=== PATIENT | male | born 1980 | race Caucasian/White ===

== ENCOUNTER → 2016-10-13 | Outpatient (REF) | payer MEDICAID, OTHER ==
[2016-10-13 18:48] LABS: BASO % 0.5 % (0.0-1.0); EOS # 0.4 K/mm3 (0.0-0.50); EOS % 5.1 % (0.0-3.0); LARGE UNSTAINED CELL # 0.3 K/mm3 (0.0-0.4); LARGE UNSTAINED CELL % 3.5 % (0.0-4.0); LYMPH % 38.6 % (24.0-44.0); MEAN CORPUSCULAR HEMOGLOBIN 30.3 pg (27.0-33.0); MEAN CORPUSCULAR HGB CONC 34.9 g/dl (32.0-36.5); MEAN CORPUSCULAR VOLUME 86.8 fl (80.0-96.0); MONO # 0.4 K/mm3 (0.0-0.8); MONO % 4.5 % (0.0-5.0); NEUTROPHILS # 3.8 K/mm3 (1.8-7.7); NEUTROPHILS % 47.8 % (36.0-66.0); PLATELET COUNT, AUTOMATED 195 k/mm3 (150-450); RED CELL DISTRIBUTION WIDTH 12.8 % (11.5-14.5); WHITE BLOOD COUNT 7.9 K/mm3 (4.0-10.0)
[2016-10-13 18:58] LABS: ALBUMIN 3.8 GM/DL (3.2-5.2); ALBUMIN/GLOBULIN RATIO 0.84 (1.00-1.93); ALKALINE PHOSPHATASE 74 U/L (45-117); ALT/SGPT 41 U/L (12-78); AST/SGOT 23 U/L (15-37); BILIRUBIN,DIRECT 0.1 MG/DL (0.0-0.2); BILIRUBIN,TOTAL 0.6 MG/DL (0.2-1.0); TOTAL PROTEIN 8.3 GM/DL (6.4-8.2)
[2016-10-15 09:50] LABS: HEPATITIS B SURFACE ANTIBODY POSITIVE (POSITIVE)
== END ==
LOC: M SFHCPLAZ 16:58
PROVIDERS: ATTEND Internal Medicine Infectious Disease
DX: B18.2 Chronic viral hepatitis C (principal)

== ENCOUNTER → 2016-12-23 | Outpatient (CLI) | payer OTHER, MEDICAID ==
[2016-12-23 19:14] LABS: ALBUMIN/GLOBULIN RATIO 0.95 (1.00-1.93); ALKALINE PHOSPHATASE 80 U/L (45-117); ALT/SGPT 25 U/L (12-78); ANION GAP 8 MEQ/L (8-16); AST/SGOT 23 U/L (15-37); BILIRUBIN,TOTAL 0.2 MG/DL (0.2-1.0); BLOOD UREA NITROGEN 20 MG/DL (7-18); CALCIUM LEVEL 8.6 MG/DL (8.5-10.1); CARBON DIOXIDE LEVEL 27 MEQ/L (21-32); CHLORIDE LEVEL 105 MEQ/L (98-107); CHOLESTEROL LEVEL 188 MG/DL (<200); CREATININE FOR GFR 0.91 MG/DL (0.70-1.30); GLOMERULAR FILTRATION RATE > 60.0 (>60); GLUCOSE, FASTING 80 MG/DL (70-105); POTASSIUM SERUM 3.8 MEQ/L (3.5-5.1); SODIUM LEVEL 140 MEQ/L (136-145); TOTAL PROTEIN 8.2 GM/DL (6.4-8.2); TRIGLYCERIDES LEVEL 186 MG/DL (<150)
[2016-12-24 09:26] LABS: HIV SCRN NEGATIVE (NEGATIVE)
[2016-12-24 09:27] LABS: CONTROL LINE INT CTR LINE PRESENT; HIV SCRN1 NEGATIVE (NEGATIVE)
[2016-12-28 14:16] LABS: HEPATITIS C QUANTITATION HCV Not Detected IU/mL (.)
== END ==
LOC: M LAB 16:41
PROVIDERS: ATTEND Family Medicine
DX: F11.20 Opioid dependence, uncomplicated (principal)

== ENCOUNTER → 2017-02-22 | Outpatient (REF) | payer OTHER ==
[2017-02-22 17:38] LABS: ALBUMIN 3.7 GM/DL (3.2-5.2); ALBUMIN/GLOBULIN RATIO 1.06 (1.00-1.93); ALKALINE PHOSPHATASE 75 U/L (45-117); ALT/SGPT 26 U/L (12-78); AST/SGOT 16 U/L (15-37); BILIRUBIN,DIRECT < 0.1 MG/DL (0.0-0.2); BILIRUBIN,TOTAL 0.2 MG/DL (0.2-1.0); TOTAL PROTEIN 7.2 GM/DL (6.4-8.2)
[2017-02-23 10:50] LABS: HEPATITIS B SURFACE ANTIBODY POSITIVE (POSITIVE)
[2017-02-25 14:16] LABS: HEPATITIS C QUANTITATION HCV Not Detected IU/mL (.)
== END ==
LOC: M SFHCPLAZ 15:57
PROVIDERS: ATTEND Internal Medicine Infectious Disease
DX: B18.2 Chronic viral hepatitis C (principal)

== ENCOUNTER 2017-09-12 09:09 | Emergency (ER) | payer OTHER ==
[~2017-09-12] VITALS: Ht 180.3 cm; Wt 126.4 kg
[2017-09-12 09:12] VITALS: BP 138/97
[2017-09-12] MEDS ORDERED: NEUR300C PO (09:24)
[2017-09-12] MEDS ORDERED: SUBO8MIS PO (09:25)
[2017-09-12] MEDS ORDERED: CLON-412 PO (09:25)
[2017-09-12] MEDS ORDERED: KEFL500C17 PO (10:15)
[2017-09-12] MEDS ORDERED: CEPHALEXIN 500 MG CAP PO ONE (10:15)
== END 2017-09-12 10:39 | disposition home or self-care (01) ==
LOC: M ED 09:09
DX: L03.113 Cellulitis of right upper limb (principal); L03.114 Cellulitis of left upper limb; L25.9 Unspecified contact dermatitis, unspecified cause; B18.2 Chronic viral hepatitis C; Z79.899 Other long term (current) drug therapy

== ENCOUNTER 2017-11-08 18:40 | Emergency (ER) | payer OTHER | END 2017-11-08 20:17 | disposition home or self-care (01) | LOC: M ED 18:40 | DX: J02.9 Acute pharyngitis, unspecified (principal); L02.821 Furuncle of head [any part, except face]; J45.909 Unspecified asthma, uncomplicated; Z79.899 Other long term (current) drug therapy; Z20.818 Contact with and (suspected) exposure to other bacterial communicable diseases | CPT/HCPCS: 99283 ==

== ENCOUNTER → 2018-01-25 | Outpatient (CLI) | payer OTHER | LOC: M RAD 14:48 | DX: M54.16 Radiculopathy, lumbar region (principal) | CPT/HCPCS: 72110 ==

== ENCOUNTER 2018-02-05 21:18 | Emergency (ER) | payer OTHER | END 2018-02-05 23:11 | disposition home or self-care (01) | LOC: M ED 21:18 | DX: S30.1XXA Contusion of abdominal wall, initial encounter (principal); Y04.8XXA Assault by other bodily force, initial encounter; Y92.89 Other specified places as the place of occurrence of the external cause; F41.9 Anxiety disorder, unspecified; B19.20 Unspecified viral hepatitis C without hepatic coma; F17.200 Nicotine dependence, unspecified, uncomplicated; Z79.899 Other long term (current) drug therapy | CPT/HCPCS: 99283 ==

== ENCOUNTER → 2018-03-14 | Outpatient (REF) | payer OTHER ==
[2018-03-14 13:36] LABS: VITAMIN B12 LEVEL 265 PG/ML
[2018-03-14 13:44] LABS: FREE T4 0.96 NG/DL (0.76-1.46); RHEUMATOID FACTOR QUANT < 10.0 IU/ML (<15.0)
[2018-03-14 14:02] LABS: ERYTHROCYTE SEDIMENTATION RATE 17 mm/hr (0-15)
[2018-03-14 14:32] LABS: ESTIMATED AVERAGE GLUCOSE 114 MG/DL (60-110); HEMOGLOBIN A1c 5.6 %
[2018-03-15 10:18] LABS: ANTINUCLEAR ANTIBODIES DIRECT Negative (Negative)
[2018-03-17 10:19] LABS: VITAMIN B1 LEVEL WHOLE BLOOD 110.5 nmol/L (66.5-200.0); VITAMIN B6,PYRIDOXAL PHOSPHATE 12.8 ug/L (5.3-46.7)
[2018-03-17 14:16] LABS: VITAMIN E(ALPHA TOCOPHEROL) 9.7 mg/L (5.9-19.4); VITAMIN E(GAMMA TOCOPHEROL) 2.4 mg/L (0.7-4.9)
== END ==
LOC: M LABNEURO 10:59
DX: E11.9 Type 2 diabetes mellitus without complications (principal); E07.9 Disorder of thyroid, unspecified; R20.0 Anesthesia of skin
CPT/HCPCS: 82746

== ENCOUNTER → 2018-03-30 | Outpatient (CLI) | payer OTHER | LOC: M RAD 06:11 | DX: R22.42 Localized swelling, mass and lump, left lower limb (principal); M71.22 Synovial cyst of popliteal space [Baker], left knee | CPT/HCPCS: 93970 ==

== ENCOUNTER 2018-07-06 02:07 | Emergency (ER) | payer OTHER ==
[2018-07-06] MEDS: AMPICILLIN SOD/SULBACTAM SOD 3 GM in D5W MINI-BAG PLUS 100 ML IV (05:00)
== END 2018-07-06 05:54 | disposition home or self-care (01) ==
LOC: M ED 02:07
DX: L03.113 Cellulitis of right upper limb (principal); Z79.899 Other long term (current) drug therapy; F17.210 Nicotine dependence, cigarettes, uncomplicated
CPT/HCPCS: 76882

== ENCOUNTER → 2018-12-07 | Outpatient (REF) | payer MEDICAID ==
[~2018-12-07] MED LIST: AUGM500T34 PO; AUGM875T28 PO; BUPR1SUB5 SL; CATA0.1T PO; CLON-412 PO; KEFL500C17 PO; LYRI150C PO; LYRI75CA PO; NEUR300C PO; SUBO8MIS PO
[2018-12-07 21:56] LABS: INFLUENZA A AMPLIFICATION NEGATIVE (NEGATIVE); INFLUENZA B AMPLIFICATION NEGATIVE (NEGATIVE)
== END ==
LOC: M LAB REF 18:27
PROVIDERS: ATTEND Physician Assistant
DX: J11.1 Influenza due to unidentified influenza virus with other respiratory manifestations (principal)

== ENCOUNTER 2019-03-08 14:11 | Emergency (ER) | payer MEDICAID ==
[~2019-03-08] VITALS: Ht 180.3 cm; Wt 114.1 kg
[2019-03-08 14:12] VITALS: BP 141/95
[2019-03-08] MEDS ORDERED: QUET5TAB PO (14:24)
[2019-03-08] MEDS ORDERED: LYRI200C PO (14:24)
[2019-03-08] MEDS ORDERED: GABA-843 PO (14:24)
== END 2019-03-08 16:25 | disposition left against medical advice (07) ==
LOC: M ED 14:11
DX: M54.30 Sciatica, unspecified side (principal); Z53.21 Procedure and treatment not carried out due to patient leaving prior to being seen by health care provider

== ENCOUNTER 2019-03-10 20:26 | Emergency (ER) | payer MEDICAID, OTHER ==
[~2019-03-10] VITALS: Ht 180.3 cm; Wt 113.2 kg
[~2019-03-10 20:26] MED LIST changes: +GABA-843 PO; +LYRI200C PO; +QUET5TAB PO
[2019-03-10] MEDS ORDERED: IBUP80TA PO (20:33)
[2019-03-10] MEDS ORDERED: KETOROLAC 30 MG/ML VIAL (J1885) IM ONE (21:00)
[2019-03-10] MEDS ORDERED: KETO10TAB PO (21:24)
[2019-03-10 21:37] VITALS: BP 125/82
== END 2019-03-10 22:00 | disposition home or self-care (01) ==
LOC: M ED 20:26
DX: M47.26 Other spondylosis with radiculopathy, lumbar region (principal); M54.42 Lumbago with sciatica, left side; Z86.19 Personal history of other infectious and parasitic diseases; G57.93 Unspecified mononeuropathy of bilateral lower limbs; F19.11 Other psychoactive substance abuse, in remission; Z87.81 Personal history of (healed) traumatic fracture; F17.200 Nicotine dependence, unspecified, uncomplicated; Z79.899 Other long term (current) drug therapy; Z79.1 Long term (current) use of non-steroidal anti-inflammatories (NSAID)
CPT/HCPCS: 96372; 99283; J1885

== ENCOUNTER 2019-04-01 23:24 | Emergency (ER) | payer OTHER ==
[~2019-04-01] VITALS: Ht 180.3 cm; Wt 112.7 kg
[~2019-04-01 23:24] MED LIST changes: +IBUP80TA PO; +KETO10TAB PO
[2019-04-02] MEDS ORDERED: KETOROLAC 60 MG/2 ML VIAL (J1885) IM ONE (00:30)
[2019-04-02] MEDS ORDERED: PRED10TA2 PO (00:57)
[2019-04-02 01:02] VITALS: BP 158/102
== END 2019-04-02 01:04 | disposition home or self-care (01) ==
LOC: M ED 23:24
DX: M54.32 Sciatica, left side (principal); F17.210 Nicotine dependence, cigarettes, uncomplicated; Z79.899 Other long term (current) drug therapy; Z86.19 Personal history of other infectious and parasitic diseases
CPT/HCPCS: 96372; 99283; J1885

== ENCOUNTER → 2019-05-17 | Outpatient (CLI) | payer OTHER ==
[~2019-05-17] MED LIST changes: +PRED10TA2 PO
--- NOTE | 2019-05-30 01:13 | ECWPNPC ---
PATIENT NAME: MARIA A DUNN : 1980 GENDER: MALE VISIT DATE: 05/17/2019 DISCHARGE DATE: 05/17/19 1722 VISIT LOCKED DATE TIME: PHYSICIAN: ROHAN REAL MD RESOURCE: ROHAN REAL MD REASON FOR APPOINTMENT 1. SCIATICA PAIN PER SIENA HISTORY OF PRESENT ILLNESS PAIN SCREENING: PATIENT HAS A COMPLAINT OF ACUTE OR CHRONIC PAIN :YES 38 YEAR OLD MALE PATIENT WITH A HISTORY OF CHRONIC LEFT LEG PAIN. THE PATIENT DESCRIBES THE PAIN ACHING, STABBING, SHOOTING, SORE, SHARP, DAILY, NUMBNESS, AND CONTINUOUS WITH A PAIN SCORE OF 8-10/10 DEPENDING ON PHYSICAL ACTIVITY. THE PATIENT SAYS HE HAS A HISTORY OF LOW BACK AND LEG PAIN, HOWEVER THE PAIN HE IS EXPERIENCING NOW IS NEW. THE PATIENT STATES HIS PAIN BEGINS IN HIS LEFT LOWER BUTTOCK AND RADIATES DOWN HIS LEFT LEG TO HIS LEFT KNEE WITH NUMBNESS IN HIS LEGS AND FEET. THE PATIENT SAYS HE HAS BEEN SUFFERING FROM THIS PAIN FOR ABOUT 6 MONTHS AND HE FEELS HE MAY HAVE PULLED HIS HAMSTRING. THE PATIENT SAYS HIS PAIN IS AFFECTING HIS ABILITY TO MOVE, WALK, AND PERFORM HIS DAILY ACTIVITIES, SUCH CLEANING AND GROCERY SHOPPING. PATIENT DENIES UNEXPLAINABLE WEIGHT LOSS, FEVER, CHILLS, NEW CHANGES ON HIS URINARY OR BOWEL CONTROL. FALL RISK SCREENING: SCREENING :NO FALLS REPORTED IN THE LAST YEAR CURRENT MEDICATIONS TAKING SUBOXONE DIRECTED FILM 1 CAP ORALLY 4 MG 5 TIMES A DAY FOR TOTAL OF 20 MG PER DAY TAKING LYRICA 100 MG CAPSULE 2 TABS ORALLY TID TAKING SEROQUEL 25 MG TABLET 1 TABLET AT BEDTIME ORALLY ONCE A DAY NOT-TAKING CLONIDINE HCL 0.1 MG TABLET 1 TABLET ORALLY BID NOT-TAKING GABAPENTIN 300 MG CAPSULE 1 TABLET ORALLY TID, NOTES: TID NOT-TAKING DOXYCYCLINE HYCLATE 100 MG CAPSULE 1 CAPSULE ORALLY EVERY 12 HRS UNKNOWN SUBOXONE 4-1 MG FILM 1 STRIP SUBLINGUAL DAILY MEDICATION LIST REVIEWED AND RECONCILED WITH THE PATIENT PAST MEDICAL HISTORY HEPATITIS C F0 GENOTYPE 3/ VACCINATED TWINRIX 2015/ CURED EPCLUSA 12 WEEKS DEPRESSION IVDU- LAST USE 02/16/[address] HOUSE ALLERGIES N.K.D.A. SURGICAL HISTORY LEFT KNEE MENSICUS REPAIR HEMATOMA ON HEAD 1984 RIGHT THUMB 2012 FAMILY HISTORY FATHER: ALIVE, DIAGNOSED WITH HYPERTENSION MOTHER: ALIVE, HYPERTENSION 1 SISTER(S) - HEALTHY. 1 SON(S) , 1 DAUGHTER(S) - HEALTHY. SOCIAL HISTORY GENERAL: TOBACCO USE ARE YOU A:CURRENT SMOKER TRYING TO QUIT ARE YOU INTERESTED IN QUITTING?NOT READY TO QUIT COUNSELED THE PATIENT ON SMOKING EFFECTS, EDUCATION TAWVOLOU67/08/2019 HOW MANY CIGARETTES A DAY DO YOU SMOKE?6-10 HOW SOON AFTER YOU WAKE UP DO YOU SMOKE YOUR FIRST CIGARETTE?6-30 MIN HOW OFTEN DO YOU SMOKE CIGARETTES?EVERY DAY PATIENT COUNSELED ON THE DANGERS OF TOBACCO USE AND URGED TO QUIT:05/17/2019 HIV / HEP-C SCREENING HIV TEST OFFERED TO PATIENT:YES DATE OFFERED:11/03/2016 TEST ACCEPTED: PREV TESTED HEP-C TEST OFFERED TO PATIENT:YES DATE OFFERED:11/03/2016 TEST ACCEPTED: PREV TESTED HOUSING: RENTS APARTMENT. EDUCATION LEVEL OF EDUCATION:HIGH SCHOOL DIET: REGULAR. LANGUAGE TURKMEN. NEW PATIENT PAIN DIARY TODAY'S VISITNOTES 8 PATIENT DESCRIBES PAIN :IT COMES AND GOES, SHOOTING, OTHER FEELS LIKE AN ELECTRICAL PAIN IN LEFT LEG FROM 0-10, WHAT LEVEL IS YOUR PAIN TODAY?8 PRECIPITATING FACTORS ACTIVITY ALLEVIATING FACTORS MEDS TAKE THE EDGE OFF, HAS TRIED PT IMPACT ON FUNCTION NO ABLE TO DO MUCH DO YOU TAKE ANY BLOOD THINNERS?NO BMI CARE GOAL FOLLOW-UP ABOVE NORMAL BMI FOLLOW-UPDIETARY MANAGEMENT EDUCATION, GUIDANCE, AND COUNSELING RECREATIONAL DRUG USE DRUG USE?YES NONE CURRENTLY HOW OFTEN AND HOW MUCH? LAST USE 02/16/16 IVDU EXERCISE: NONE- NOT ABLE TO RIGHT NOW. LEARNING BARRIERS / SPECIAL NEEDS BARRIERS TO LEARNING?NO HEARING IMPAIRED?NO VISION IMPAIRED?NO COGNITIVELY IMPAIRED?NO READINESS TO LEARN?YES LEARNING PREFERENCES?NO LEARNING CAPABILITIES PRESENT?YES EMOTIONAL BARRIERS?NO SPECIAL DEVICES?NO PAIN CLINIC PFS, CLERGY, PUBLIC HEALTH REFERRALS HAS THE PATIENT BEEN EDUCATED REGARDING HIS/HER PLAN OF CARE?YES HAS THE PATIENT BEEN EDUCATED REGARDING PAIN, THE RISK FOR PAIN, THE IMPORTANCE OF EFFECTIVE PAIN MANAGEMENT, AND THE PAIN ASSESSMENT PROCESS?YES LATEX QUESTIONNAIRE LATEX ALLERGY : HAVE YOU EVER DEVELOPED ANY TYPE OF REACTION AFTER HANDLING LATEX PRODUCTS SUCH RUBBER GLOVES, CONDOMS, DIAPHRAGMS, BALLOONS, SOCKS, OR UNDERWEAR?NO LATEX ALLERGY : HAVE YOU EVER DEVELOPED ANY TYPE OF REACTION DURING OR AFTER DENTAL APPOINTMENT, VAGINAL/RECTAL EXAMINATION, SURGICAL PROCEDURE, OR ANY OTHER EXPOSURE?NO LATEX RISK : HAVE YOU EVER HAD ANY DIFFICULTY BREATHING OR HIVES AFTER EATING OR HANDLING ANY FRUITS, OR VEGETABLES; SUCH KIWI, BANANAS, STONE FRUITS, OR CHESTNUTSNO LATEX RISK : DO YOU HAVE A PREVIOUS PERSONAL HISTORY OF MORE THAN NINE SURGERIES, SPINA BIFIDA, OR REPEATED CATHERIZATIONS? NO LATEX RISK : ARE YOU FREQUENTLY EXPOSED TO LATEX PRODUCTS IN YOUR OCCUPATION?YES DATE ASKED : 05/17/2019 CAFFEINE CAFFEINE USE?NO ADVANCE DIRECTIVE ADVANCE DIRECTIVE DISCUSSED WITH PATIENT:NO DECLINES NEED FOR INFORMATION GNOSTICIST NO VOODOO BELIEFS THAT WOULD IMPACT HEALTH CARE. MARITAL STATUS: SINGLE- LIVES WITH GIRLFRIEND. ALCOHOL SCREENING DID YOU HAVE A DRINK CONTAINING ALCOHOL IN THE PAST YEAR?NO POINTS0 INTERPRETATIONNEGATIVE OCCUPATION: [employer]. REVIEWED WITH PATIENT 05/17/19 1612 NLJ. HOSPITALIZATION/MAJOR DIAGNOSTIC PROCEDURE FOR IV ANTIBIOTICS FOR SEVERE THROAT INFLAMMATION 2013 VOLUNTARY ADMISSION TO [facility] REVIEW OF SYSTEMS REVIEWED BY: PROVIDER: ROHAN REAL MD . CONSTITUTIONAL: ANY CHANGE IN YOUR MEDICAL CONDITION? NO . CHILLS NO . FEVER NO . INFECTION: DO YOU HAVE NEW INFECTIONS? NO . DO YOU HAVE HISTORY OF MRSA? NO . MUSCULOSKELETAL: ANY NEW PATTERNS OF PAIN OR NUMBNESS? YES- LEFT LEG PAIN AND ELECTRICAL FEELING . SYTEMIC LUPUS NO . GASTROENTEROLOGY: ANY NEW CHANGE IN BOWEL CONTROL? NO . BARRETTS ESOPHAGUS NO . CIRRHOSIS NO . HEPATITIS NO . LIVER FAILURE NO . ACID REFLUX NO . UNEXPLAINED WEIGHT LOSS NO . GENITOURINARY: ANY NEW CHANGE IN BLADDER CONTROL? YES- DIFFICULTY STARTING . IS THERE A CHANCE YOU COULD BE ? NO . HEMATOLOGY/LYMPH: DO YOU TAKE ANY BLOOD THINNERS? (FOR EXAMPLE- COUMADIN, PLAVIX, AGGRENOX, PLATEL, PRADAXA, OR XARELTO) NO . WHEN WAS YOUR LAST DOSE? DATE: TIME: . LOW PLATELET COUNT NO . SICKLE CELL DISEASE NO . VON WILLIEBRANDS NO . FACTOR V LEIDEN NO . THALLASEMIA NO . ANEMIA NO . EASY BRUISING NO . NEUROLOGY: HAVE YOU FALLEN IN THE PAST 12 MONTHS? NO . ANY NEW EXTREMITY NUMBNESS OR WEAKNESS? YES- LEFT LEG AND FOOT PAIN, RIGHT FOOT PAIN . HEAD INJURY NO . DEMENTIA NO . CEREBRAL PALSY NO . MULTIPLE SCLEROSIS NO . DIZZINESS NO . HEADACHE NO . STROKES NO . VERTIGO NO . CARDIOLOGY: DO YOU HAVE A PACEMAKER OR DEFIBRILLATOR? NO . ANGINA NO . HEART ATTACK NO . HEART SURGERY NO . CONGESTIVE HEART FAILURE/FLUID OVERLOAD NO . CHEST PAIN NO . HIGH BLOOD PRESSURE NO . IRREGULAR HEART BEAT NO . RESPIRATORY: HAVE YOU BEEN SICK IN THE PAST WEEK? NO . FEVER NO . FLU LIKE SYMPTOMS? NO . CPAP NO . BYPAP NO . ASTHMA NO . EMPHYSEMA NO . CHRONIC LUNG DISEASES NO . SHORTNESS OF BREATH ON EXERTION YES . COUGH NO . SNORING YES . INTEGUMENTARY: DO YOU HAVE ANY RASHES OR OPEN SORES? NO . ALLERGIC/IMMUNO: ARE YOU ALLERGIC TO IV DYE? NO . ANY NEW ALLERGIES? NO . PSYCHIATRIC: DO YOU HAVE THOUGHTS OF HURTING YOURSELF OR SOMEONE ELSE? NO . ARE YOU ABUSED, NEGLECTED, OR IN AN UNSAFE ENVIRONMENT? NO . ENDOCRINOLOGY: ARE YOU DIABETIC? NO . THYROID DISORDER NO . OTHER: DO YOU NEED ANY PRESCRIPTIONS? YES- WOULD LIKE SUGESTIONS . IF YES, PLEASE LIST: ____ . ANY NEW PROBLEMS WITH YOUR MEDICATIONS? YES- HAS STOPPED SOME . WHEN DID YOU LAST EAT? ____ . WHEN DID YOU LAST DRINK? ____ . WHAT DID YOU LAST DRINK? ____ . NAME OF PERSON DRIVING YOU HOME? ____ . DO YOU HAVE ANY OTHER QUESTIONS OR CONCERNS YES- MEDICATION OPTIONS, TESTING, WHAT CAN BE DONE? . VITAL SIGNS WT 258.2 LBS, HT 5'11", BMI 36.01 INDEX, BP 133/73 MM HG, HR 105 /MIN, RR 18 /MIN, TEMP 97.7 F, OXYGEN SAT % 96%, SAFE IN ENV? (Y/N) YES, NA INITIALS AW 1525, REVIEWED BY: CHANEL. EXAMINATION GENERAL EXAMINATION: PATIENT IS ALERT O X 3 AND COOPERATIVE. LUNGS CLEAR, TO AUSCULTATION. HEART: NO MURMURS OR GALLOPS; FACIAL CRANIAL NERVES ARE GROSSLY NORMAL. GOOD SYMMETRY OF FACIAL MUSCLE MOVEMENT. NORMAL VISUAL [place]. TENDERNESS AND PAIN IN THE HAMSTRING NEAR THE RIGHT ISCHIAL TUBEROSITY. MRI OF THE LUMBAR SPINE DONE ON 04/14/2018 SHOWS BULGING DISC AT L4-L5 AND L5-S1 LEVELS. MRI OF THE LUMBAR SPINE DONE ON 12/23/2018 SHOWS SIMILAR FINDINGS TO THE PREVIOUS MRI. ASSESSMENTS LEFT LEG PAIN - M79.605 (PRIMARY) NUMBNESS OF LEGS - R20.0 NEURALGIA OF LEFT LOWER EXTREMITY - M79.2 POSSIBLE BURSITIS OF THE LEFT ISCHIAL TUBEROSITY. TREATMENT LEFT LEG PAIN CLINICAL NOTES: WE DISCUSSED SEVERAL ISSUES WITH MR. DUNN'S PAIN MANAGEMENT CASE. DUE TO THE POSSIBILITY OF BURSITIS OF THE LEFT ISCHIAL TUBEROSITY, I AM ORDERING FOR A PELVIC MRI WITH SPECIAL ATTENTION OF THE LEFT ISCHIAL TUBEROSITY. I WILL REQUEST THE PATIENT'S PREVIOUS EMG COMPLETE STUDY THAT WAS DONE AT [facility]. I BELIEVE THERE MAY BE AN UNDERLINING CAUSE FOR THE INFLAMMATION OF THE PATIENT'S PELVIS AND SWELLING IN HIS LEGS AND FEET. I WILL START THE PATIENT ON GABAPENTIN 400 MG FOR NEUROPATHIC PAIN. I PROVIDED A SCHEDULE FOR THE PATIENT TO SLOWLY INCREASE THE GABAPENTIN TO UP TO 3 TABLETS DAILY, IN ORDER TO AVOID ANY ADVERSE SIDE EFFECTS. THE PATIENT WILL FOLLOW UP IN 4 WEEKS. INSTRUCTIONS WERE GIVEN, QUESTIONS WERE ANSWERED, PATIENT REPORTS UNDERSTANDING AND AGREES WITH THE PLAN. I, LATISHA WOODWARD, DOCUMENTED THE ABOVE INFORMATION ACTING A SCRIBE FOR DR. REAL. I HAVE REVIEWED THE ABOVE DOCUMENT, WRITTEN BY LATISHA RINCON AND I VERIFY THAT IT IS ACCURATE. DEAR DR. REAL GUNN M.D.: THANK YOU FOR YOUR KIND REFERRAL OF MARIA A DUNN. IF YOU WANT TO DISCUSS HIS CASE WITH ME PLEASE CALL ME AT THE PAIN CENTER AT [phone]. SINCERELY, ROHAN REAL MD PAIN MEDICINE . OTHERS REFILL GABAPENTIN CAPSULE, 400 MG, 1 TABLET, ORALLY FOR PAIN, TID, 30 DAYS, 90 TABLET, REFILLS 1, NOTES: TID PROCEDURE CODES FA211 ESTABILISHED PATIENT [facility] FACILITY CHARGE [id number] CURRENT MEDS W/DOSAGES DOCUMENTED G8730 PAIN ASSESS POS TOOL F/U PLAN DOC DISPOSITION & COMMUNICATION FOLLOW UP 4 WEEKS (REASON: F/U WITH KULWINDER LOZANO, & [address] Jones FOR PELVIC MRI RESULTS IN 4 WEEKS) ELECTRONICALLY SIGNED BY ROHAN REAL MD, MD ON 05/29/2019 AT 12:15 PM EDT DISCLAIMER : THIS IS A VISIT SUMMARY EXTRACTED FROM THE [employer] CHART. IT IS NOT A COPY OF THE [employer] PROGRESS NOTE. MTDD
== END ==
LOC: M PAIN 15:00
PROVIDERS: ATTEND Anesthesiology
DX: M79.605 Pain in left leg (principal); G89.29 Other chronic pain; R20.0 Anesthesia of skin; M79.2 Neuralgia and neuritis, unspecified; Z86.59 Personal history of other mental and behavioral disorders; F17.210 Nicotine dependence, cigarettes, uncomplicated; Z79.899 Other long term (current) drug therapy